=== PATIENT | female | born 1930 | race Caucasian/White ===

== ENCOUNTER 2018-04-19 08:04 | Emergency (ER) | payer OTHER ==
[~2018-04-19] VITALS: Ht 160 cm; Wt 68.2 kg
[2018-04-19] MEDS ORDERED: INSLAN SQ (08:27)
[2018-04-19] MEDS ORDERED: LOSA50TA37 PO (08:27)
[2018-04-19] MEDS ORDERED: PANT40TA25 PO (08:27)
[2018-04-19] MEDS ORDERED: MIRT15 PO (08:27)
[2018-04-19] MEDS ORDERED: LATA2.5D2 OU (08:27)
[2018-04-19] MEDS ORDERED: WARF2 PO (08:27)
[2018-04-19] MEDS ORDERED: ROPI0.255 PO (08:27)
[2018-04-19] MEDS ORDERED: SULF1TAB42 PO (08:27)
[2018-04-19] MEDS ORDERED: FURO20 PO (08:27)
[2018-04-19] MEDS ORDERED: PRED10 PO (08:27)
[2018-04-19] MEDS ORDERED: ASCO-477 PO (08:27)
[2018-04-19] MEDS ORDERED: METO25 PO (08:27)
[2018-04-19] MEDS ORDERED: FLUT16H NASAL (08:27)
[2018-04-19] MEDS ORDERED: CITA-106 PO (08:27)
[2018-04-19] MEDS ORDERED: MULT-1203 PO (08:27)
[2018-04-19] MEDS ORDERED: ATOR10TA84 PO (08:27)
[2018-04-19] MEDS ORDERED: INSNOV SQ (08:27)
[2018-04-19] MEDS ORDERED: FERR325T22 PO (08:27)
[2018-04-19] MEDS ORDERED: CLON.5 PO (08:27)
[2018-04-19 09:19] LABS: BASOPHILS % (AUTO) 0.6 % (0.0-2.0); EOSINOPHILS % (AUTO) 0.5 % (1.0-6.0); HEMATOCRIT 37.6 % (36-46); HEMOGLOBIN 12.2 g/dL (12.0-16.0); LYMPHOCYTES # (AUTO) 2.4 K/uL (1.0-4.8); LYMPHOCYTES % (AUTO) 23.1 % (22.0-44.0); MEAN CORPUSCULAR HEMOGLOBIN 27.3 pg (26.0-34.0); MEAN CORPUSCULAR HGB CONC 32.4 G/dL (31.0-37.0); MEAN CORPUSCULAR VOLUME 84 fL (80-100); MONOCYTES # (AUTO) 0.9 K/uL (0.1-1.0); MONOCYTES % (AUTO) 8.2 % (2.0-9.0); NEUTROPHILS # (AUTO) 7.1 K/uL (1.8-7.7); NEUTROPHILS % (AUTO) 67.6 % (40.0-70.0); PLATELET COUNT (AUTO) 219 K/uL (150-450); RED BLOOD CELL COUNT(AUTO) 4.46 MIL/uL (4.00-5.20); RED CELL DISTRIBUTION WIDTH 16.9 % (11.5-14.5)
[2018-04-19 09:26] LABS: CALCIUM, TOTAL 9.4 mg/dL (8.8-10.5); CREATININE 1.03 mg/dL (0.60-1.30); POTASSIUM 3.7 mmol/L (3.5-5.1)
[2018-04-19 09:32] LABS: ALBUMIN 2.8 g/dL (3.4-5.0); BILIRUBIN,TOTAL 0.5 mg/dL (0.1-1.0); TOTAL PROTEIN, SERUM 6.3 g/dL (6.4-8.2)
[2018-04-19 09:34] LABS: INR 2.7 (0.9-1.1); PROTHROMBIN TIME 27.5 SEC (9.4-11.6)
[2018-04-19 10:06] LABS: APPEARANCE,URINE CLEAR (CLEAR); BILIRUBIN,URINE NEGATIVE (NEGATIVE); GLUCOSE, URINE (UA) NEGATIVE (NEGATIVE); KETONES,URINE NEGATIVE (NEGATIVE); LEUKOCYTE ESTERASE ,URINE NEGATIVE (NEGATIVE); NITRATE,URINE NEGATIVE (NEGATIVE); OCCULT BLOOD,URINE NEGATIVE (NEGATIVE); PROTEIN,URINE NEGATIVE (NEGATIVE); UROBILINOGEN,URINE 0.2 mg/dL (<=1.0)
[2018-04-19] MEDS ORDERED: LIDOCAINE HCL 2% 5 ML JELLY TP ONE (10:15)
[2018-04-19] MEDS ORDERED: SILVER NITRATE APPLICATOR 1 EA STICK TP ONE ×2 (10:59→11:00)
[2018-04-19 11:46] VITALS: BP 138/53
== END 2018-04-19 12:03 | disposition home or self-care (01) ==
LOC: EMS 08:05
DX: R04.0 Epistaxis (principal); R74.0 Nonspecific elevation of levels of transaminase and lactic acid dehydrogenase [LDH]; R10.13 Epigastric pain; I11.0 Hypertensive heart disease with heart failure; I50.9 Heart failure, unspecified; I48.91 Unspecified atrial fibrillation; E11.9 Type 2 diabetes mellitus without complications; K21.9 Gastro-esophageal reflux disease without esophagitis; Z79.01 Long term (current) use of anticoagulants; Z88.0 Allergy status to penicillin; Z88.5 Allergy status to narcotic agent; Z88.8 Allergy status to other drugs, medicaments and biological substances
CPT/HCPCS: 30901; 93005; 99285

== ENCOUNTER 2018-04-22 16:34 | Emergency (ER) | payer OTHER ==
[~2018-04-22] VITALS: Ht 160 cm; Wt 68.0 kg
[~2018-04-22 16:34] MED LIST: ASCO-477 PO; ATOR10TA84 PO; CITA-106 PO; CLON.5 PO; FERR325T22 PO; FLUT16H NASAL; FURO20 PO; INSLAN SQ; INSNOV SQ; LATA2.5D2 OU; LOSA50TA37 PO; METO25 PO; MIRT15 PO; MULT-1203 PO; PANT40TA25 PO; PRED10 PO; ROPI0.255 PO; SULF1TAB42 PO; WARF2 PO
[2018-04-22 16:59] LABS: GLUCOSE,POINT OF CARE 186 MG/DL (70-110)
[2018-04-22 19:49] VITALS: BP 109/65
== END 2018-04-22 19:49 | disposition home or self-care (01) ==
LOC: EMS 16:35
DX: Z48.00 Encounter for change or removal of nonsurgical wound dressing (principal); I48.91 Unspecified atrial fibrillation; I11.0 Hypertensive heart disease with heart failure; I50.9 Heart failure, unspecified; E11.9 Type 2 diabetes mellitus without complications; K21.9 Gastro-esophageal reflux disease without esophagitis; Z79.4 Long term (current) use of insulin; Z88.0 Allergy status to penicillin; Z88.5 Allergy status to narcotic agent; Z88.8 Allergy status to other drugs, medicaments and biological substances
CPT/HCPCS: 99283

== ENCOUNTER 2018-08-28 14:52 | Emergency (ER) | payer OTHER ==
[~2018-08-28] VITALS: Ht 152.4 cm; Wt 75.0 kg
[~2018-08-28 14:52] MED LIST changes: +LOSA50TA25 PO; -LOSA50TA37 PO; -ROPI0.255 PO; +ROPI0.257 PO
[2018-08-28 16:12] LABS: BASOPHILS % (AUTO) 0.7 % (0.0-2.0); EOSINOPHILS % (AUTO) 0.7 % (1.0-6.0); HEMATOCRIT 42.2 % (36-46); HEMOGLOBIN 13.5 g/dL (12.0-16.0); LYMPHOCYTES # (AUTO) 2.3 K/uL (1.0-4.8); LYMPHOCYTES % (AUTO) 21.9 % (22.0-44.0); MEAN CORPUSCULAR HEMOGLOBIN 25.2 pg (26.0-34.0); MEAN CORPUSCULAR HGB CONC 32.1 G/dL (31.0-37.0); MEAN CORPUSCULAR VOLUME 79 fL (80-100); MONOCYTES # (AUTO) 0.9 K/uL (0.1-1.0); MONOCYTES % (AUTO) 8.9 % (2.0-9.0); NEUTROPHILS # (AUTO) 7.2 K/uL (1.8-7.7); NEUTROPHILS % (AUTO) 67.8 % (40.0-70.0); PLATELET COUNT (AUTO) 224 K/uL (150-450); RED BLOOD CELL COUNT(AUTO) 5.37 MIL/uL (4.00-5.20)
[2018-08-28] MEDS ORDERED: PB/HYOSCY/ATR/SCOP/LIDO/MAALOX 55 ML BOTTLE PO ONE (16:15)
[2018-08-28 16:18] LABS: GLUCOSE,POINT OF CARE 228 MG/DL (70-110)
[2018-08-28 16:22] LABS: INR 1.1 (0.9-1.1); PROTHROMBIN TIME 11.7 SEC (9.4-11.6)
[2018-08-28 16:37] LABS: ALBUMIN 2.6 g/dL (3.4-5.0); BILIRUBIN,TOTAL 0.5 mg/dL (0.1-1.0); CALCIUM, TOTAL 9.3 mg/dL (8.8-10.5); CREATININE 0.99 mg/dL (0.60-1.30); POTASSIUM 3.4 mmol/L (3.5-5.1); TOTAL PROTEIN, SERUM 7.2 g/dL (6.4-8.2)
[2018-08-28] MEDS ORDERED: ALBUTEROL SULFATE 2.5 MG/0.5 ML NEB SOLUTION NEB ONE (17:30)
[2018-08-28] MEDS ORDERED: NITROGLYCERIN 2% (1 GM=INCH) PACKET TP ONE (17:30)
[2018-08-28] MEDS ORDERED: FUROSEMIDE 40 MG/4 ML VIAL IVP ONE (17:30)
[2018-08-28] MEDS ORDERED: KETOROLAC TROMETHAMINE 30 MG/ML VIAL IVP ONE (17:30)
[2018-08-28] MEDS ORDERED: IPRATROPIUM BROMIDE 0.5 MG/2.5 ML NEB SOLUTION NEB ONE (17:30)
[2018-08-28 19:33] LABS: APPEARANCE,URINE CLOUDY (CLEAR); BILIRUBIN,URINE NEGATIVE (NEGATIVE); GLUCOSE, URINE (UA) NEGATIVE (NEGATIVE); KETONES,URINE NEGATIVE (NEGATIVE); LEUKOCYTE ESTERASE ,URINE MODERATE (NEGATIVE); OCCULT BLOOD,URINE NEGATIVE (NEGATIVE); PROTEIN,URINE NEGATIVE (NEGATIVE); UROBILINOGEN,URINE 0.2 mg/dL (<=1.0)
[2018-08-28 19:46] LABS: BACTERIA,URINE Many /HPF (None Seen); NITRATE,URINE POSITIVE (NEGATIVE); RBC,URINE 0-2 /HPF (0-2); SQUAMOUS EPITHELIAL CELL,UR Few /LPF (None Seen); WBC,URINE 26-50 /HPF (0-5)
[2018-08-28 20:30] VITALS: BP 139/84
== END 2018-08-28 21:20 | disposition short-term general hospital (02) ==
LOC: EMS 14:52
DX: S72.141A Displaced intertrochanteric fracture of right femur, initial encounter for closed fracture (principal); R18.8 Other ascites; I11.0 Hypertensive heart disease with heart failure; I50.9 Heart failure, unspecified; E11.9 Type 2 diabetes mellitus without complications; I48.91 Unspecified atrial fibrillation; F41.9 Anxiety disorder, unspecified; F32.9 Major depressive disorder, single episode, unspecified; Z88.0 Allergy status to penicillin; Z88.5 Allergy status to narcotic agent; Z88.8 Allergy status to other drugs, medicaments and biological substances; X58.XXXA Exposure to other specified factors, initial encounter; Y93.89 Activity, other specified; Y92.89 Other specified places as the place of occurrence of the external cause; Y99.8 Other external cause status
CPT/HCPCS: 36415; 51702; 71045; 74176; 80053; 81001; 82962; 83690; 83880; 84484; 85025; 85610; 85730; 87086; 93005; 94640; 96374; 96375; 99285; J1885; J1940